=== PATIENT | male | born 1985 | race Caucasian/White ===

== ENCOUNTER 2017-04-16 17:55 | Emergency (ER) | payer SELFPAY ==
[~2017-04-16] VITALS: Ht 182.9 cm; Wt 127.0 kg
--- NOTE | 2017-04-16 18:30 | ER Report ---
History and Physical Time Seen By MD: 18:30 HPI/ROS CHIEF COMPLAINT: Right-sided abdominal pain HISTORY OF PRESENT ILLNESS: This is a 32-year-old male who presents to the emergency department for right-sided abdominal pain. Patient states at about 437 he developed some right-sided abdominal pain, as well as right flank pain and pain into the right groin. Patient states that he's also had some episodes of diarrhea no blood that he's noted. Patient also states that he's had some nausea and vomiting. 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 Patient denies chest pain, shortness of breath, dysuria, headaches. Patient also states that he has had some systemic aches and chills. REVIEW OF SYSTEMS: Constitutional: As above. Eyes: No discharge. ENT: No sore throat. Cardiovascular: No chest pain, no palpitations. Respiratory: No cough, no shortness of breath. Gastrointestinal: As above. Genitourinary: No hematuria. Musculoskeletal: As above. Skin: No rashes. Neurological: No headache. Allergies: Coded Allergies: meperidine (Verified Allergy, Severe, 04/16/17) morphine (Verified Allergy, Severe, 04/16/17) iodine (Verified Allergy, Unknown, 04/16/17) topical ketorolac (Verified Allergy, Unknown, 04/16/17) Home Meds No Active Prescriptions or Reported Meds Past Medical/Surgical History Patient has a past medical and surgical history of orthopedic surgeries, PTSD, suicide attempt. Reviewed Nurses Notes: Yes Constitutional Vital Sign - Last 24 Hours 04/16/17 18:31 Temp 98.5 Pulse 77 Resp 20 B/P (MAP) 152/105 Pulse Ox 95 O2 Delivery Room Air Intake and Output 04/16/17 04/16/17 04/17/17 15:00 23:00 07:00 Intake Total 1000 ml Balance 1000 ml Physical Exam General Appearance: The patient is alert, has no immediate need for airway protection and no signs of toxicity, pale. Eyes: Pupils equal and round no pallor or injection. ENT, Mouth: Mucous membranes are moist. No posterior oropharynx erythema. Respiratory: There are no retractions, lungs are clear to auscultation. Cardiovascular: Regular rate and rhythm, no murmurs, clicks or rubs. Genitourinary: Positive cremasteric reflex, bilaterally. No testicular discomfort, bilaterally. No inguinal hernia's. Gastrointestinal: Abdomen is round, soft with rebound tenderness on the left side. Right sided abdominal pain at McBurney's point. No masses, hypoactive bowel sounds. Neurological: Alert and oriented 4. Moving all extremities. Following all commands. No focal neuro deficits. Skin: Warm and dry, no rashes. Musculoskeletal: Neck is supple non tender. Extremities are nontender, non-swollen and have full range of motion. DIFFERENTIAL DIAGNOSIS: After history and physical exam differential diagnosis was considered for abdominal pain including but not limited to appendicitis, cholecystitis, gastritis and urinary tract infection, kidney stone. Medical Decision Making Data Points Result Diagram: 04/16/172 04/16/17 184 Laboratory Hematology Test 04/16/17 18:42 04/16/17 18:57 04/16/17 19:10 Red Blood Count 5.19 M/uL (4.00-5.60) Mean Corpuscular Volume 87.9 fL (80.0-96.0) Mean Corpuscular Hemoglobin 30.0 pg (26.0-33.0) Mean Corpuscular Hemoglobin Concent 34.2 g/dL (32.0-36.0) Red Cell Distribution Width 13.7 % (11.5-14.5) Mean Platelet Volume 8.0 fL (7.2-11.1) Neutrophils (%) (Auto) 65.6 % (39.4-72.5) Lymphocytes (%) (Auto) 25.9 % (17.6-49.6) Monocytes (%) (Auto) 6.7 % (4.1-12.4) Eosinophils (%) (Auto) 1.2 % (0.4-6.7) Basophils (%) (Auto) 0.6 % (0.3-1.4) Nucleated RBC Relative Count (auto) 0.0 /100WBC Neutrophils # (Auto) 5.8 K/uL (2.0-7.4) Lymphocytes # (Auto) 2.3 K/uL (1.3-3.6) Monocytes # (Auto) 0.6 K/uL (0.3-1.0) Eosinophils # (Auto) 0.1 K/uL (0.0-0.5) Basophils # (Auto) 0.1 K/uL (0.0-0.1) Nucleated RBC Absolute Count (auto) 0.00 K/uL Sodium Level 140 mmol/L (137-145) Potassium Level 3.6 mmol/L (3.5-5.0) Chloride Level 102 mmol/L (98-107) Carbon Dioxide Level 24 mmol/L (22-30) Blood Urea Nitrogen 11 mg/dl (9-21) Creatinine 0.90 mg/dl (0.66-1.25) Glomerular Filtration Rate Calc > 60.0 Random Glucose 88 mg/dl (75-110) Lactate 1.2 mmol/L (0.7-2.1) Calcium Level 9.2 mg/dl (8.4-10.2) Total Bilirubin 0.5 mg/dl (0.2-1.3) Aspartate Amino Transf (AST/SGOT) 32 U/L (0-35) Alanine Aminotransferase (ALT/SGPT) 54 U/L (0-56) Alkaline Phosphatase 72 U/L (0-126) Total Protein 7.4 gm/dl (6.3-8.2) Albumin 4.1 g/dl (3.5-5.0) Lipase 31 U/L (23-300) Influenza Virus Type A (PCR) Negative (NEGATIVE) Influenza Virus Type B (PCR) Negative (NEGATIVE) Urine Color Yellow Urine Clarity Clear Urine pH 6.0 pH (4.8-9.5) Urine Specific [place] 1.030 Urine Protein Negative mg/dL (NEGATIVE) Urine Glucose (UA) Negative mg/dL (NEGATIVE) Urine Ketones Negative mg/dL (NEGATIVE) Urine Blood Negative (NEGATIVE) Urine Nitrite Negative (NEGATIVE) Urine Bilirubin Negative (NEGATIVE) Urine Urobilinogen 4.0 mg/dL (0.2-1.9) Urine Leukocyte Esterase Negative (NEGATIVE) Urine RBC None /HPF (0-2/HPF) Urine WBC <1 /HPF (0-5/HPF) Urine Squamous Epithelial Cells Few /LPF (</=FEW) Urine Bacteria Negative /HPF (NONE-FEW) Urine Mucus Few /HPF (NONE-FEW) Chemistry Test 04/16/17 18:42 04/16/17 18:57 04/16/17 19:10 White Blood Count 8.8 k/uL (4.5-11.0) Red Blood Count 5.19 M/uL (4.00-5.60) Hemoglobin 15.6 g/dL (14.0-18.0) Hematocrit 45.6 % (42.0-52.0) Mean Corpuscular Volume 87.9 fL (80.0-96.0) Mean Corpuscular Hemoglobin 30.0 pg (26.0-33.0) Mean Corpuscular Hemoglobin Concent 34.2 g/dL (32.0-36.0) Red Cell Distribution Width 13.7 % (11.5-14.5) Platelet Count 243 K/uL (150-450) Mean Platelet Volume 8.0 fL (7.2-11.1) Neutrophils (%) (Auto) 65.6 % (39.4-72.5) Lymphocytes (%) (Auto) 25.9 % (17.6-49.6) Monocytes (%) (Auto) 6.7 % (4.1-12.4) Eosinophils (%) (Auto) 1.2 % (0.4-6.7) Basophils (%) (Auto) 0.6 % (0.3-1.4) Nucleated RBC Relative Count (auto) 0.0 /100WBC Neutrophils # (Auto) 5.8 K/uL (2.0-7.4) Lymphocytes # (Auto) 2.3 K/uL (1.3-3.6) Monocytes # (Auto) 0.6 K/uL (0.3-1.0) Eosinophils # (Auto) 0.1 K/uL (0.0-0.5) Basophils # (Auto) 0.1 K/uL (0.0-0.1) Nucleated RBC Absolute Count (auto) 0.00 K/uL Glomerular Filtration Rate Calc > 60.0 Lactate 1.2 mmol/L (0.7-2.1) Calcium Level 9.2 mg/dl (8.4-10.2) Total Bilirubin 0.5 mg/dl (0.2-1.3) Aspartate Amino Transf (AST/SGOT) 32 U/L (0-35) Alanine Aminotransferase (ALT/SGPT) 54 U/L (0-56) Alkaline Phosphatase 72 U/L (0-126) Total Protein 7.4 gm/dl (6.3-8.2) Albumin 4.1 g/dl (3.5-5.0) Lipase 31 U/L (23-300) Influenza Virus Type A (PCR) Negative (NEGATIVE) Influenza Virus Type B (PCR) Negative (NEGATIVE) Urine Color Yellow Urine Clarity Clear Urine pH 6.0 pH (4.8-9.5) Urine Specific [place] 1.030 Urine Protein Negative mg/dL (NEGATIVE) Urine Glucose (UA) Negative mg/dL (NEGATIVE) Urine Ketones Negative mg/dL (NEGATIVE) Urine Blood Negative (NEGATIVE) Urine Nitrite Negative (NEGATIVE) Urine Bilirubin Negative (NEGATIVE) Urine Urobilinogen 4.0 mg/dL (0.2-1.9) Urine Leukocyte Esterase Negative (NEGATIVE) Urine RBC None /HPF (0-2/HPF) Urine WBC <1 /HPF (0-5/HPF) Urine Squamous Epithelial Cells Few /LPF (</=FEW) Urine Bacteria Negative /HPF (NONE-FEW) Urine Mucus Few /HPF (NONE-FEW) Urinalysis Test 04/16/17 19:10 Urine Color Yellow Urine Clarity Clear Urine pH 6.0 pH (4.8-9.5) Urine Specific [place] 1.030 Urine Protein Negative mg/dL (NEGATIVE) Urine Glucose (UA) Negative mg/dL (NEGATIVE) Urine Ketones Negative mg/dL (NEGATIVE) Urine Blood Negative (NEGATIVE) Urine Nitrite Negative (NEGATIVE) Urine Bilirubin Negative (NEGATIVE) Urine Urobilinogen 4.0 mg/dL (0.2-1.9) Urine Leukocyte Esterase Negative (NEGATIVE) Urine RBC None /HPF (0-2/HPF) Urine WBC <1 /HPF (0-5/HPF) Urine Squamous Epithelial Cells Few /LPF (</=FEW) Urine Bacteria Negative /HPF (NONE-FEW) Urine Mucus Few /HPF (NONE-FEW) EKG/Imaging Imaging Location: [facility] Patient: Clyde Hua : 1985 Visit/Account:[id number] Date of Sevice: 04/16/2017 COMPUTED TOMOGRAPHY OF THE Abdomen and Pelvis with CONTRAST INDICATION: Abdominal pain. Right flank pain. TECHNIQUE: Contiguous axial 3.[address] images were obtained through the abdomen and pelvis after the administration of intravenous contrast, volume not specified. Coronal and sagittal reformatted images were submitted. COMPARISON: None. FINDINGS: Lung bases: The lung bases are clear. Liver and hepatic vasculature: Smooth liver surface. No ascites. Gallbladder and bile ducts: Normal gallbladder. Spleen: Normal spleen. Pancreas: Mild atrophy in the pancreatic head. Adrenals: Normal Kidneys, ureters and bladder: No hydronephrosis or collecting system obstruction. Decompressed bladder. Retroperitoneum and aorta: Normal caliber aorta. GI tract, mesentery and peritoneum: No bowel obstruction. No free fluid or free air. A few mesenteric lymph nodes in the right lower quadrant are mildly prominent as are a few mid mesenteric lymph nodes. Prostate: Unremarkable. Bones and soft tissues: No acute osseous abnormality. IMPRESSION: A few mesenteric lymph nodes in the right lower quadrant and mid mesentery are mildly prominent, nonspecific, potentially incidental finding. Otherwise, no evidence of acute intra-abdominal abnormality. One of the following dose optimization techniques was utilized in the performance of this exam: Automated exposure control; adjustment of the mA and/ or kV according to the patient's size; or use of an iterative reconstruction technique. Specific details can be referenced in the facility's radiology CT exam operational policy. Report Dictated By: Raul Saldaña MD at 04/16/2017 7:57 PM Report E-Signed By: Raul Saldaña MD at 04/16/2017 8:07 PM WSN:[id number] ED Course/Re-evaluation Clinical Indication for ER IV: Hydration, IV Access ED Course Patient was admitted to room. A history physical were obtained. Differential diagnoses were considered. IV was started. A CBC, CMP, lactate were obtained. Laboratory studies unremarkable. UA was unremarkable. Negative influenza. A CT of the abdomen and pelvis was obtained. CT showing mesenteric lymphadenopathy. I did review these results with the patient and explained to him that this is likely the cause of his discomfort as there was no appendicitis or kidney stone. I did instruct the patient to take ibuprofen or Tylenol for his discomforts. I also encouraged patient to follow up with his primary care provider when he gets back to [place] for reevaluation to make sure he is improving. Patient was also instructed to return to the emergency department for any other concerns or worsening symptoms he may have. Patient had no questions or concerns and was discharged home. Decision to Disposition Date: Apr 16, 2017 Decision to Disposition Time: 20:29 Depart Departure Latest Vital Signs Vital Signs Date Time Temp Pulse Resp B/P (MAP) Pulse Ox O2 Delivery O2 Flow Rate FiO2 04/16/17 18:31 98.5 77 20 152/105 95 Room Air Impression: Primary Impression: Mesenteric lymphadenopathy Condition: Improved Disposition: HOME OR SELF-CARE New Scripts No Active Prescriptions or Reported Meds Patient Instructions: Mesenteric Adenitis (ED) Additional Instructions: Drink plenty of water. Get plenty of rest. Take ibuprofen or Tylenol as needed for discomfort. No driving for at least 24 hours after you medications in the ED. Please follow up with your primary care provider when you return to [place], to ensure you are improving. Return to the ED for worsening symptoms or any other concerns. FILIBERTO ROWE SHADE CLASSIFIER-BC Apr 16, 2017 18:30
[2017-04-16] MEDS ORDERED: LR(*) 1000 ML BAG 1,000 ML IV ONE (18:41)
[2017-04-16] MEDS ORDERED: ONDANSETRON 4 MG/2 ML VIAL IVP ONE (18:45)
[2017-04-16] MEDS ORDERED: fentaNYL CITR 100 MCG/2 ML AMP IVP ONE ×2 (18:55→20:10)
[2017-04-16 18:57] LABS: PLATELET COUNT, AUTOMATED 243 K/uL (150-450)
[2017-04-16] MEDS ORDERED: NS(*) 0.9% 1000 ML BAG 1,000 ML IV ONE (19:00)
[2017-04-16] MEDS ORDERED: IOPAMIDOL 76% 100 ML INFUS BTL 100 ML ONE (19:28)
[2017-04-16] MEDS ORDERED: NS 0.9% 20 ML SDV 60 ML ONE (19:28)
--- NOTE | 2017-04-16 20:10 | RADIOLOGY IMAGING REPORT ---
FACILITY: [facility] PATIENT NAME: Clyde Hua : 1985 MR: [id number] V: [id number] EXAM DATE: ORDERING PHYSICIAN: FILIBERTO ROWE TECHNOLOGIST: Location: [facility] Patient: Clyde Hua : 1985 Visit/Account:[id number] Date of Sevice: 04/16/2017 COMPUTED TOMOGRAPHY OF THE Abdomen and Pelvis with CONTRAST INDICATION: Abdominal pain. Right flank pain. TECHNIQUE: Contiguous axial 3.[address] images were obtained through the abdomen and pelvis after the administration of intravenous contrast, volume not specified. Coronal and sagittal reformatted images were submitted. COMPARISON: None. FINDINGS: Lung bases: The lung bases are clear. Liver and hepatic vasculature: Smooth liver surface. No ascites. Gallbladder and bile ducts: Normal gallbladder. Spleen: Normal spleen. Pancreas: Mild atrophy in the pancreatic head. Adrenals: Normal Kidneys, ureters and bladder: No hydronephrosis or collecting system obstruction. Decompressed bladd er. Retroperitoneum and aorta: Normal caliber aorta. GI tract, mesentery and peritoneum: No bowel obstruction. No free fluid or free air. A few mesenteric lymph nodes in the right lower quadrant are mildly prominent as are a few mid mesenteric lymph nodes . Prostate: Unremarkable. Bones and soft tissues: No acute osseous abnormality. IMPRESSION: A few mesenteric lymph nodes in the right lower quadrant and mid mesentery are mildly prominent, nons pecific, potentially incidental finding. Otherwise, no evidence of acute intra-abdominal abnormality. One of the following dose optimization techniques was utilized in the performance of this exam: Autom ated exposure control; adjustment of the mA and/or kV according to the patient's size; or use of an i terative reconstruction technique. Specific details can be referenced in the facility's radiology C T exam operational policy. Report Dictated By: Raul Saldaña MD at 04/16/2017 7:57 PM Report E-Signed By: Raul Saldaña MD at 04/16/2017 8:07 PM WSN:[id number]
[2017-04-16 20:30] VITALS: BP 124/88
== END 2017-04-16 21:00 | disposition home or self-care (01) ==
LOC: ER 18:59
DX: R59.1 Generalized enlarged lymph nodes (principal)
CPT/HCPCS: 74177; 81001; 83605; 83690; 85025; 87502; 96374; 96375; 96376; 99284; J2405; J3010; J7030; J7050; J7120; Q9967; 82040; 82247; 82310; 82374; 82435; 82565; 82947; 84075; 84132; 84155; 84295; 84450; 84460; 84520